=== PATIENT | male | born 1965 ===

== ENCOUNTER 2020-09-08 09:38 | Emergency (ER) | payer OTHER ==
[~2020-09-08] VITALS: Ht 165.1 cm; Wt 77.1 kg
[2020-09-08] MEDS ORDERED: CIPRO500 MG PO (10:47)
[2020-09-08] MEDS ORDERED: INTESTINEX680 M1 PO (10:47)
== END 2020-09-08 11:34 ==
LOC: ER 09:38
DX: S60.222A Contusion of left hand, initial encounter (principal); D21.12 Benign neoplasm of connective and other soft tissue of left upper limb, including shoulder; X58.XXXA Exposure to other specified factors, initial encounter; Y93.89 Activity, other specified; Y92.89 Other specified places as the place of occurrence of the external cause; Y99.8 Other external cause status